=== PATIENT | male | born 1975 | race Hispanic/Latino ===

== ENCOUNTER 2018-10-22 07:11 | Emergency (ER) | payer SELFPAY ==
--- NOTE | 2018-10-22 07:39 | RAD ---
XR Ankle Rt 3 View STANDARD HISTORY: Right ankle pain, injury COMPARISON: None. FINDINGS: The ankle mortise is maintained. No fracture or dislocation is identified.
[2018-10-22] MEDS ORDERED: Adacel (T-DAP) 0.5 ML SYRINGE ONE (08:04)
== END 2018-10-22 09:35 | disposition home or self-care (01) ==
LOC: ERS 07:11
DX: S90.511A Abrasion, right ankle, initial encounter (principal); V69.59XA Passenger in heavy transport vehicle injured in collision with other motor vehicles in traffic accident, initial encounter
CPT/HCPCS: 90471; 90715; G0390

== ENCOUNTER 2024-05-19 14:12 | Emergency (ER) | payer OTHER, SELFPAY ==
[2024-05-19] MEDS ORDERED: Acetaminophen 500 MG TAB ONE (15:34)
[2024-05-19] MEDS ORDERED: Ketorolac Tromethamine 30 MG (1 mL) VIAL ONE (15:34)
== END 2024-05-19 17:16 | disposition home or self-care (01) ==
LOC: ERS 14:12
DX: S32.010A Wedge compression fracture of first lumbar vertebra, initial encounter for closed fracture (principal); V89.0XXA Person injured in unspecified motor-vehicle accident, nontraffic, initial encounter; Z55.6 Problems related to health literacy
CPT/HCPCS: 72131; 96372; J1885